=== PATIENT | female | born 2000 | race Caucasian/White ===

== ENCOUNTER → 2020-10-07 12:14 | Outpatient (BNVA) | payer MEDICAID, SELFPAY | PROVIDERS: Family Provider Nurse Practitioner; PCP Nurse Practitioner; Visit Provider Nurse Practitioner Family | DX: Z01.419 Encounter for gynecological examination (general) (routine) without abnormal findings (principal) | CPT/HCPCS: 87491; 87591; 87661; 88175 ==

== ENCOUNTER → 2022-08-16 15:29 | Outpatient (BNVA) | payer MEDICAID, SELFPAY | PROVIDERS: PCP Nurse Practitioner; Visit Provider Nurse Practitioner Family | DX: Z30.09 Encounter for other general counseling and advice on contraception (principal); Z30.41 Encounter for surveillance of contraceptive pills; N63.10 Unspecified lump in the right breast, unspecified quadrant; N63.20 Unspecified lump in the left breast, unspecified quadrant; Z00.00 Encounter for general adult medical examination without abnormal findings | CPT/HCPCS: 81025 ==

== ENCOUNTER 2022-09-09 11:02 | Outpatient (CLI) | payer MEDICAID, SELFPAY ==
--- NOTE | 2022-09-09 11:09 | US_ITS ---
WS: [id number] Ultrasound of palpable subcutaneous nodule inferior the right breast, 09/09/2022 Clinical Data: LUMP UNDER RIGHT BREAST Comparison: None. Findings: There is a well-defined soft tissue nodule measuring 0.72 x 1.76 x 2.43 cm with mixed echotexture. It is longer than it is deep. There is a well-defined smooth borders. No significant blood flow is occu rring. US/US soft tissue head neck [id number] Impression: Nonspecific subcutaneous tissue nodule with greatest dimension of 2.43 cm infer ior to the right breast.
== END 2022-09-09 11:03 | disposition home or self-care (01) ==
LOC: RAD 11:06
PROVIDERS: PCP Nurse Practitioner; Visit Provider Nurse Practitioner Family
DX: N63.10 Unspecified lump in the right breast, unspecified quadrant (principal)
CPT/HCPCS: 76536

== ENCOUNTER → 2022-12-28 10:27 | Outpatient (BNVA) | payer MEDICAID, SELFPAY | PROVIDERS: PCP Nurse Practitioner Family; Visit Provider Nurse Practitioner Family | DX: Z11.3 Encounter for screening for infections with a predominantly sexual mode of transmission (principal) | CPT/HCPCS: 81025; 86592; 86695; 86696; 86705; 86706; 86709; 86803; 87340; 87491; 87591; 87661; 87806 ==

== ENCOUNTER → 2023-03-31 10:38 | Outpatient (BNVA) | payer MEDICAID, SELFPAY | PROVIDERS: PCP Nurse Practitioner Family; Visit Provider Nurse Practitioner Family | DX: R10.9 Unspecified abdominal pain (principal); Z11.3 Encounter for screening for infections with a predominantly sexual mode of transmission | CPT/HCPCS: 80053; 84443; 85025; 86003; 86008; 87491; 87591; 87661 ==

== ENCOUNTER 2023-08-18 23:27 | Inpatient (IN) | payer MEDICAID, SELFPAY ==
[2023-08-18 23:28] VITALS: BP 120/69; PULSE 138; RESP 22; O2SAT 95; BMI 21.2
--- NOTE | 2023-08-18 23:30 | XRR_ITS ---
PROCEDURE INFORMATION: Exam: XR Chest Exam date and time: 08/18/2023 11:33 PM Age: 23 years old Clinical indication: Other: Drug overdose; Patient HX: EMS arrival for druge overdose. Patient non verbal. Unable to obtain further history. ; Additional info: Od TECHNIQUE: Imaging protocol: Radiologic exam of the chest. Views: 1 view. COMPARISON: No relevant prior studies available. FINDINGS: Lungs: Unremarkable. No consolidation. Pleural spaces: Unremarkable. No pleural effusion. No pneumothorax. Heart/Mediastinum: Unremarkable. No cardiomegaly. Bones/joints: Unremarkable. XR/XR chest 1V portable [id number] IMPRESSION: No acute findings.
--- NOTE | 2023-08-18 23:38 | W.ED.OVERDOS ---
HPI - Overdose General: Chief Complaint: Overdose Stated Complaint: Benadryl overdose Time Seen by Provider: 08/18/23 23:30 Source: EMS and other Limitations: altered mental status History of Present Illness: 23-year-old female here with EMS after an overdose attempt. Patient had taken an unknown amount of Benadryl at an unknown time she states is an attempt to kill herself to EMS. He may states when they arrived she did have a seizure lasted roughly 30 seconds this was 30 minutes ago. Patient is postictal here she will open her eyes but not given any history is lethargic. She is tachycardic as well. Review of Systems General: Reports: ROS unobtainable due to mental status PFS ED PFSH: Medical History (Updated 08/19/23 @ 00:59 by Fely Hand MD) No significant past medical history Surgical History No pertinent past surgical history Social History Smoking and tobacco/nicotine status: current every day tobacco/nicotine user e-cigarettes E-Cigarette Details: vaporizer device E-cig/vape details: 0.3 MG NICOTINE/1 YEAR Second hand smoke exposure: No Alcohol intake: never Substance/Drug Use: never Adopted: No Caregiver/support person: No Lives independently: Yes Household members: family Housing: House Marital status: Single Number of children: 0 Highest education level completed: Associate Degree: Academic Program Current occupational status: student Physical Exam Const: COMMON NORMALS: negative for patient oriented x3 EXAM LIMITATIONS: altered mental status HENMT: COMMON NORMALS: normocephalic and atraumatic HEAD & SCALP: normocephalic and atraumatic Eye: COMMON NORMALS: Equal, round and reactive pupils present and EOMs intact bilaterally PUPIL: Yes Equal, round and reactive pupils present OTHER: Nystagmus noted Neck/C-Spine: COMMON NORMALS: full ROM and supple Chest: COMMONS NORMALS: normal inspection of the chest and normal palpation of entire chest wall Resp: COMMON NORMALS: normal respiratory effort, No retractions, No use of accessory muscles and clear to auscultation bilaterally AUSCULTATION: clear to auscultation bilaterally Cardio: COMMON NORMALS: regular rhythm and No murmurs present (Cardio) RATE: tachycardic RHYTHM: regular rhythm GI: COMMON NORMALS: Normal to inspection, nondistended, normoactive bowel sounds present, Soft to palpation, non-tender and no masses PALPATION: Yes Soft to palpation Extremity: COMMON NORMALS: normal to inspection and full ROM Neuro: COMMON NORMALS: negative for patient oriented x3 Psych: COMMON NORMALS: negative for mental status grossly normal Skin: COMMON NORMALS: no rashes or lesions noted and no wounds GENERAL SKIN EXAM: no rashes or lesions noted Course Vital Signs: Vital signs: Vital Signs Pulse Rate 115 H 08/19/23 00:21 Respiratory Rate 25 H 08/19/23 00:21 Blood Pressure 104/50 08/19/23 00:21 Pulse Oximetry 98 08/19/23 00:21 Oxygen Delivery Me thod Nasal Cannula 08/18/23 23:28 Oxygen Flow Rate 4 08/18/23 23:28 MDM - Overdose Medical Decision Making Patient presents here with an overdose attempt on Benadryl. Patient did have a seizure in route along with a seizure here patient given Keppra and Ativan and IV fluids her heart rate here is improving spoke to hospitalist will admit to the ICU at this time. Medical Records I reviewed the patient's medical records. Lab Data I reviewed the patient's lab results. 08/18/23 23:41 08/18/23 23:41 Radiology Impressions Chest X-Ray 08/18/23 23:30 IMPRESSION: No acute findings. Laboratory Results WBC 14.38 10^3/uL (3.29-11.43) H 08/18/23 23:41 RBC 4.28 10^6/uL (3.85-5.65) 08/18/23 23:41 Hgb 13.00 g/dL (11.27-16.99) 08/18/23 23:41 Hct 42.8 % (36-47) 08/18/23 23:41 MCV 100.0 fl (85-98) H 08/18/23 23:41 MCH 30.4 pg (27-33) 08/18/23 23:41 MCHC 30.4 g/dL (30-55) 08/18/23 23:41 RDW 12.7 % (12.1-15.1) 08/18/23 23:41 Plt Count 264 10^3/cmm (157-399) 08/18/23 23:41 MPV 11.5 fL (7.4-10.4) H 08/18/23 23:41 Neut % (Auto) 51.6 % 08/18/23 23:41 Lymph % (Auto) 40.1 % 08/18/23 23:41 [place] % (Auto) 6.5 % 08/18/23 23:41 Eos % (Auto) 0.0 % 08/18/23 23:41 Baso % (Auto) 1.0 % 08/18/23 23:41 Neut # (Auto) 7.43 10^3/uL (1.8-7.7) 08/18/23 23:41 Lymph # (Auto) 5.8 10^3/uL (0.8-4.8) H 08/18/23 23:41 [place] # (Auto) 0.9 10^3/uL (0.2-0.9) 08/18/23 23:41 Eos # (Auto) 0.0 10^3/uL (0.0-0.8) 08/18/23 23:41 Baso # (Auto) 0.1 10^3/uL (0.0-0.1) 08/18/23 23:41 Nucleated RBC % (auto) 0 % 08/18/23 23:41 Nucleated RBCs # 0.0 /100WBC 08/18/23 23:41 Sodium 144 mmol/L (136-145) 08/18/23 23:41 Potassium 3.6 mmol/L (3.5-5.1) 08/18/23 23:41 Chloride 101 mmol/L (98-107) 08/18/23 23:41 Carbon Dioxide 13 mmol/L (22-29) L 08/18/23 23:41 Anion Gap 33.6 (5-19) H 08/18/23 23:41 BUN 12 mg/dL (6-20) 08/18/23 23:41 Creatinine 1.0 mg/dL (0.5-0.9) H 08/18/23 23:41 GFR Calculation 68.1 mL/min (90-130) L 08/18/23 23:41 Glucose 143 mg/dL (65-115) H 08/18/23 23:41 Calculated Osmolality 300 mOsm/kg (285-295) H 08/18/23 23:41 Calcium 9.6 mg/dL (8.5-10.5) 08/18/23 23:41 Magnesium 2.3 mg/dL (1.7-2.3) 08/18/23 23:41 Total Bilirubin 0.2 mg/dL (0.15-1.2) 08/18/23 23:41 AST 24 U/L (0-32) 08/18/23 23:41 ALT 15 U/L (0-33) 08/18/23 23:41 Alkaline Phosphatase 72 U/L (35-105) 08/18/23 23:41 Total Protein 7.5 g/dL (6.6-8.7) 08/18/23 23:41 Albumin 4.6 g/dL (3.5-5.2) 08/18/23 23:41 Globulin 2.9 g/dL (1.3-4.6) 08/18/23 23:41 Salicylates 1.7 mg/dL (3-10) L 08/18/23 23:41 Urine Opiates Screen Negative ng/mL (Negative) 08/18/23 23:40 Acetaminophen < 5.0 ug/mL (10-30) L 08/18/23 23:41 Ur Barbiturates Screen Negative ng/mL (Negative) 08/18/23 23:40 Ur Phencyclidine Scrn Negative ng/mL (Negative) 08/18/23 23:40 Ur Amphetamines Screen Negative ng/mL (Negative) 08/18/23 23:40 U Benzodiazepines Scrn Negative ng/mL (Negative) 08/18/23 23:40 [place] 0.1 mmol/L (0.6-1.2) L 08/18/23 23:41 Urine Cocaine Screen Negative ng/mL (Negative) 08/18/23 23:40 U Marijuana (THC) Screen Negative ng/mL (Negative) 08/18/23 23:40 Ethyl Alcohol < 10 mg/dL (0-10) 08/18/23 23:41 All radiology interpretation(s) finalized by discharge EKG Data EKG 1: I personally reviewed and interpreted this EKG as follows: EKG interpretation date: 08/18/23 EKG interpretation time: 23:32 Interpretation: sinus tach hr [address] or t wave abnormalities qrs 90 qtc 453 Critical Care Time Critical Care Time: Critical Care Time: Yes Total Critical Care Time: 35 Attestation: The high probability of a clinically significant, sudden or life threatening deterioration of the patient's neuro system(s) required my full and direct attention, intervention and personal management. The critical care time is as shown. This time is in addition to time spent performing any reported procedures but includes the following: [x] Data and vital sign review and interpretation [x] Patient assessment, examination and intervention [x] Documentation [x] Medication orders and management Discharge Plan Discharge Patient Disposition: Admitted As Inpatient Clinical Impression: Drug overdose, Seizure Condition: Stable Prescriptions: No Action ondansetron HCl 4 mg tablet 4 mg PO TID PRN (Reason: nausea and vomiting) Qty: 30 0RF omeprazole 20 mg capsule,delayed release(DR/EC) 20 mg PO BID Qty: 60 1RF norgestimate-ethinyl estradiol [Tri-Sprintec (28)] 0.18/0.215/0.25 mg-35 mcg (28) tablet See Rx Instructions .ROUTE .COMPLEX Qty: 28 0RF Dose Instruction: TAKE 1 TABLET BY MOUTH ONCE DAILY FOR 28 DAYS Rx Instructions: TAKE 1 TABLET BY MOUTH ONCE DAILY FOR 28 DAYS Referrals: Charlotte Jordan FNP [Primary Care Provider] - Coding Level of Care Code ED Public Health Representative for [facility]
[2023-08-18] MEDS: LORazepam 2 mg/mL INJ 1 mL IVP (23:44)
[2023-08-18] MEDS: sodium chloride 0.9% 1,000 ML 999 ML IV (23:46)
[2023-08-18 23:50] VITALS: BP 123/62; PULSE 127; RESP 26; O2SAT 99
[2023-08-19] VITALS (47 sets, daily range): BP systolic 104–145; BP diastolic 50–96; PULSE 71–115; RESP 14–32; TEMP 37–37.2; O2SAT 90–100
[2023-08-19] MEDS: sodium chloride 0.9% 1,000 ML 999 ML IV (00:01)
[2023-08-19 00:26] LABS: Basophils # 0.1 10^3/uL (0.0-0.1); Hematocrit 42.8 % (36-47); Lymphocytes # 5.8 10^3/uL (0.8-4.8); Lymphocytes % 40.1 %; Mean Corpuscular HGB Conc 30.4 g/dL (30-55); Mean Corpuscular Hemoglobin 30.4 pg (27-33); Mean Platelet Volume 11.5 fL (7.4-10.4); Monocytes # 0.9 10^3/uL (0.2-0.9); Monocytes % 6.5 %; Neutrophils # 7.43 10^3/uL (1.8-7.7); Neutrophils % 51.6 %; Nucleated Red Blood Cells % 0 %; Platelet Count 264 10^3/cmm (157-399); Red Blood Count 4.28 10^6/uL (3.85-5.65); Red Cell Distribution Width 12.7 % (12.1-15.1); White Blood Count 14.38 10^3/uL (3.29-11.43)
[2023-08-19 00:35] LABS: Amphetamines Screen Urine Negative (Negative); Barbiturates Screen Urine Negative (Negative); Benzodiazepines Screen Urine Negative (Negative); Cocaine Screen Urine Negative (Negative); Opiate Screen Urine Negative (Negative); PCP Screen Urine Negative (Negative); THC Screen Urine Negative (Negative)
[2023-08-19 00:36] LABS: Acetaminophen < 5.0 ug/mL (10-30); Alanine Aminotransferase 15 U/L (0-33); Albumin Level 4.6 g/dL (3.5-5.2); Alcohol Level < 10 mg/dL (0-10); Alkaline Phosphatase 72 U/L (35-105); Anion Gap 33.6 (5-19); Aspartate Amino Transferase 24 U/L (0-32); Blood Urea Nitrogen 12 mg/dL (6-20); Calcium 9.6 mg/dL (8.5-10.5); Carbon Dioxide 13 mmol/L (22-29); Chloride 101 mmol/L (98-107); Globulin 2.9 g/dL (1.3-4.6); Glomerular Filtration Rate 68.1 mL/min (90-130); Glucose 143 mg/dL (65-115); Magnesium 2.3 mg/dL (1.7-2.3); Osmolality Calculated 300 mOsm/kg (285-295); Potassium 3.6 mmol/L (3.5-5.1); Salicylate 1.7 mg/dL (3-10); Sodium 144 mmol/L (136-145); Total Bilirubin 0.2 mg/dL (0.15-1.2); Total Protein 7.5 g/dL (6.6-8.7)
[2023-08-19 00:49] LABS: Lithium 0.1 mmol/L (0.6-1.2)
[2023-08-19 00:54] LABS: Slide Review Slide Review Perform
--- NOTE | 2023-08-19 01:07 | PC.NURSE ---
96 Hour Involuntary Hold Patient Rights have been read to patient and a copy of the same has been given to her. Paper Folding Machine Operator Romaine was present at time of presentation of Rights.
[2023-08-19 02:22] LABS: HCG Qualitative Urine. Negative (Negative)
[2023-08-19] MEDS: ondansetron 2 mg/ML SDV 2 mL 4 MG IVP ×2 (05:04→11:41)
[2023-08-19 06:12] LABS: Lithium 1.1 mmol/L (0.6-1.2)
--- NOTE | 2023-08-19 06:28 | P.HP_ITS ---
Providers/Chief Complaint Admitting Physician: Esteban Rosa MD Primary Care Provider: KRISTIN Gunderson Chief Complaint: Benadryl overdose History of Present Illness Chika Erickson is a 23 year old female who was admitted to the ICU for Benadryl overdose, seizure, postictal state. Patient not able to provide history, she is still postictal, however she is moving her extremities, responding to verbal command. Requiring 2 L of oxygen. Clinically looks euvolemic. No acute distress. Poison control recommended monitoring in ICU. We are not sure about the dosage of Benadryl. Patient did tell EMS about her suicidal attempt. Once cleared will need neuropsych evaluation currently on 96-hour hold. Poison control recommended lithium level check which is within limits. She was given Keppra in the ER as well along with Ativan which is causing more drowsiness Review of Systems General: Reports: ROS unobtainable due to medical condition Medications/Allergies Home Medications Medication Instructions Recorded Confirmed Last Taken Type norgestimate-ethinyl estradiol 1 tab PO DAILY 08/19/23 08/19/23 Unknown History 0.18 mg/0.215mg/0.25mg-35 mcg(28)tablet (Tri-Sprintec (28)) Allergies Allergy/AdvReac Type Severity Reaction Status Date / Time montelukast [From Singulair] Allergy hives Verified 08/18/23 23:38 PFSH Acute PFSH: Medical History (Updated 08/19/23 @ 08:04 by Esteban Rosa MD) No significant past medical history Surgical History No pertinent past surgical history Social History Smoking and tobacco/nicotine status: current every day tobacco/nicotine user e- cigarettes E-Cigarette Details: vaporizer device E-cig/vape details: 0.3 MG NICOTINE/1 YEAR Second hand smoke exposure: No Alcohol intake: never Substance/Drug Use: never Adopted: No Caregiver/support person: No Lives independently: Yes Household members: family Housing: House Marital status: Single Number of children: 0 Highest education level completed: Associate Degree: Academic Program Current occupational status: student Vitals/I&O/Wt Last Vital Signs Pulse 92 08/19/23 06:00 Resp 14 08/19/23 01:08 BP 129/65 08/19/23 01:08 Pulse Ox 100 08/19/23 01:08 O2 Del Method Nasal Cannula 08/19/23 01:44 O2 Flow Rate 4 08/18/23 23:28 08/18/23 08/18/23 08/19/23 14:59 22:59 06:59 Output Total 2200 / 2200 Balance -2200 / -2200 Weight last 48 hrs Weight 63.957 kg Weight 64.41 kg Weight 63.503 kg Physical Exam Narrative: young female No active distress Not examined seizure Confused Able to move extremities Currently on 2 L Hemodynamically stable Euvolemic [place] catheter in place Abdomen soft S1, S2 Urinary Catheter Management: [place]: Cath Placed During This Visit: yes Reason for Continuing Indwelling Catheter: Accurate Measurement of Urinary Ou tput in Critically Ill Patients Urinary Catheter Date of Insertion: 08/18/23 Urinary Catheter Time of Insertion: 23:47 Data 08/18/23 23:41 08/18/23 23:41 A&P Assessment and plan (1) Drug overdose: (2) Seizure: (3) GERD (gastroesophageal reflux disease): (4) Suicide attempt: Plan Suicide attempt by taking Benadryl, doses unknown Poison control contacted recommended conservative management [place] level within limits Will need home medication reconciliation as well DVT prophylaxis on board I would not continue antiepileptics at this point Patient received Keppra and Ativan which made her very drowsy She is able to maintain her airway requiring 2 L of oxygen We will let her eat once more awake and alert Continue IV fluid We will need psych evaluation 96-hour hold DVT prophylaxis on board Full code Not sure if she has previous history of seizure, will request CT head which was not done in the ER Attestations 2 Medical Necessity Statement*: More than 2 midnights anticipated Diagnoses Drug overdose T50.901A Seizure R56.9 GERD (gastroesophageal reflux disease) K21.9 Suicide attempt T14.91XA
[2023-08-19] MEDS: sodium chloride 0.9% 1,000 ML 75 ML IV ×2 (06:43→21:21)
[2023-08-19] MEDS: enoxaparin 40 mg/0.4 mL Syringe SUBCUT (06:43)
[2023-08-19 07:22] LABS: Prolactin 21.38 ng/mL (4.8-23.3)
--- NOTE | 2023-08-19 08:03 | CTR_ITS ---
PROCEDURE INFORMATION: Exam: CT Head Without Contrast Exam date and time: 08/19/2023 6:19 PM Age: 23 years old Clinical indication: Patient HX: Seizure activity. Drug overdose. TECHNIQUE: Imaging protocol: Computed tomography of the head without contrast. Radiation optimization: All CT scans at this facility use at least one of these dose optimization techniques: automated exposure control; mA and/or kV adjustment per patient size (includes targeted exams where dose is matched to clinical indication); or iterative reconstruction. REPORTING DATA: Count of CT and Cardiac NM exams in prior 12 months: This patient has received 0 known CTs and 0 known cardiac nuclear medicine studies in the 12 months prior to the current study. COMPARISON: US soft tissue head neck [id number] 09/09/2022 11:45 AM RADIATION DOSE METRICS: Total DLP (mGy-cm): 1115.18 FINDINGS: Brain: Normal. No hemorrhage. Unremarkable white matter. No mass effect. Cerebral ventricles: No ventriculomegaly. Paranasal sinuses: Visualized sinuses are unremarkable. No fluid levels. Mastoid air cells: Visualized mastoid air cells are well aerated. Bones/joints: Unremarkable. No acute fracture. Soft tissues: Unremarkable. CT/CT head wo con* [id number] IMPRESSION: No acute intracranial abnormality.
--- NOTE | 2023-08-19 08:37 | ECG_ITS ---
[facility] Test Date: 2023-08-19 Pat Name: Chika Erickson Department: Room: ICU02 Gender: Female Deputy Sheriff Generalist/Bailiff: : 2000 Requested By: Tevin Moncada Order Number: [id number] Enzo MD: Constantin Ford M.D. Measurements Intervals [place] Rate: 91 P: 28 W[place]: 129 QRS: 80 QRSD: 76 T: -45 QT: 379 QTc: 467 Interpretive Statements SINUS RHYTHM ST DEVIATION AND MODERATE T-WAVE ABNORMALITY, CONSIDER ANTEROLATERAL ISCHEMIA [-0.1+ mV T-WAVE IN V3-V6] ST DEVIATION AND MODERATE T-WAVE ABNORMALITY, CONSIDER INFERIOR ISCHEMIA [-0.1+ mV T-WAVE IN II/aVF] No previous ECG available for comparison Abnormal EKG Electronically Signed On 08-19-2023 13:52:51 FLIGHT MECHANIC by Constantin Ford M.D. [email or web address]
[2023-08-19 09:19] LABS: Basophils % 0.2 %; Hematocrit 37.2 % (36-47); Lymphocytes # 1.2 10^3/uL (0.8-4.8); Lymphocytes % 8.8 %; Mean Corpuscular HGB Conc 32.5 g/dL (30-55); Mean Corpuscular Volume 92.1 fl (85-98); Monocytes # 0.5 10^3/uL (0.2-0.9); Monocytes % 3.2 %; Neutrophils % 87.6 %; Nucleated Red Blood Cells % 0 %; Platelet Count 204 10^3/cmm (157-399); Red Blood Count 4.04 10^6/uL (3.85-5.65); Red Cell Distribution Width 12.8 % (12.1-15.1); White Blood Count 13.94 10^3/uL (3.29-11.43)
[2023-08-19 09:36] LABS: Troponin T (5th) Once < 6 ng/L (0-10)
[2023-08-19 09:38] LABS: Ammonia 28 umol/L (11-51); Lactic Sepsis W/Reflex 1.5 mmol/L (0.5-2.2)
[2023-08-19 09:53] LABS: Alanine Aminotransferase 13 U/L (0-33); Albumin Level 4.5 g/dL (3.5-5.2); Alkaline Phosphatase 69 U/L (35-105); Blood Urea Nitrogen 8 mg/dL (6-20); Calcium 8.7 mg/dL (8.5-10.5); Carbon Dioxide 22 mmol/L (22-29); Chloride 102 mmol/L (98-107); Globulin 2.4 g/dL (1.3-4.6); Glomerular Filtration Rate 102.8 mL/min (90-130); Glucose 130 mg/dL (65-115); Osmolality Calculated 284 mOsm/kg (285-295); Sodium 137 mmol/L (136-145); Total Bilirubin 0.4 mg/dL (0.15-1.2); Total Protein 6.9 g/dL (6.6-8.7)
[2023-08-19 10:03] LABS: Lithium < 0.1 mmol/L (0.6-1.2)
[2023-08-19 10:04] LABS: Anion Gap 17.2 (5-19); Aspartate Amino Transferase 20 U/L (0-32); Creatine Phosphokinase 98 U/L (26-192); Potassium 4.2 mmol/L (3.5-5.1)
[2023-08-19 10:15] LABS: Hepatitis A Antibody IgM Non-Reactive (Nonreactive); Hepatitis B Core IgM Non-Reactive (Nonreactive); Hepatitis B Surface Antigen Non-Reactive (Nonreactive); Hepatitis C Virus Antibody Non-Reactive (Nonreactive)
[2023-08-19] MEDS: LORazepam 2 mg/mL INJ 1 mL 1 MG IVP (11:15)
[2023-08-19] MEDS: scopolamine 1.5 Patch 1 PATCH TRANSDERMA (13:23)
--- NOTE | 2023-08-19 13:38 | P.PN_ITS ---
Subjective Subjective: Patient was seen this morning, she is alert to person, not to place, not to time, she remains encephalopathic, she is sitting up in bed, with nursing staff around her, she can follow some commands, but is quite drowsy, easily agitated, Vitals/I&O/Wt Last Vital Signs Pulse 90 08/19/23 13:23 Resp 16 08/19/23 07:56 BP 128/80 08/19/23 13:23 Pulse Ox 95 08/19/23 07:56 O2 Del Method Nasal Cannula 08/19/23 07:56 O2 Flow Rate 2 08/19/23 07:56 08/18/23 08/19/23 08/19/23 22:59 06:59 14:59 Intake Total 2109 / 2109 Output Total 2199 / 2199 Balance -90 / -90 Weight last 48 hrs Weight 63.957 kg Weight 64.41 kg Weight 63.503 kg Physical Exam Const: COMMON NORMALS: no acute distress EXAM LIMITATIONS: altered mental status ORIENTATION/CONSCIOUSNESS: Yes awake and Yes oriented to person; not oriented to place and not oriented to time Resp: COMMON NORMALS: normal respiratory effort, No retractions, No use of accessory muscles and clear to auscultation bilaterally AUSCULTATION: clear to auscultation bilaterally Cardio: COMMON NORMALS: regular rate, regular rhythm, S1 normal heart sound present and S2 normal heart sound present RATE: regular rate RHYTHM: regular rhythm HEART SOUNDS: S1 normal heart sound present and S2 normal heart sound present GI: COMMON NORMALS: Normal to inspection, nondistended, normoactive bowel sounds present and non-tender Extremity: COMMON NORMALS: no pedal edema Neuro: SENSORIUM/ORIENTATION: Yes oriented to person, No oriented to place and No oriented to time Psych: COMMON NORMALS: mental status grossly normal Urinary Catheter Management: [place]: Cath Placed During This Visit: yes Reason for Continuing Indwelling Catheter: Accurate Measurement of Urinary Output in Critically Ill Patients Urinary Catheter Date of Insertion: 08/18/23 Urinary Catheter Time of Insertion: 23:47 Data 08/19/23 09:04 08/19/23 09:04 A&P Assessment and plan (1) Drug overdose: (2) Seizure: (3) GERD (gastroesophageal reflux disease): (4) Suicide attempt: Plan Suicide attempt by taking Benadryl, doses unknown Poison control contacted recommended conservative management [place] level within limits Will need home medication reconciliation as well DVT prophylaxis on board I would not continue antiepileptics at this point, continue to monitor Patient received Keppra and Ativan which made her very drowsy She is able to maintain her airway requiring 2 L of oxygen We will let her eat once more awake and alert ? Troponin is 6, EKG does show nonspecific ST deviations, depressions, and anterior leads, will monitor, telemetry monitoring Continue IV fluid We will need psych evaluation 96-hour hold DVT prophylaxis on board Full code Not sure if she has previous history of seizure, will request CT head which was not done in the ER Attestations Medical Necessity Statement*: Patient requires hospitalization for suicide attempt, Benadryl overdose Diagnoses Drug overdose T50.901A Seizure R56.9 GERD (gastroesophageal reflux disease) K21.9 Suicide attempt T14.91XA
--- NOTE | 2023-08-19 19:15 | PC.NURSE ---
Patient becoming aggitated at change of shift, getting OOB very unsteady on feet. Demanding we give her purse, wanting her vape pen. Asked patient if she would need a nicotine patch, she yes. Spoke with regarding patient aggitation and requesting nicotine patch. ordered PRN Xanax. Patient is NPO due to mentation but can if now that she is waking up can see if patient tolerates PO and can advance diet if appropriate.
[2023-08-19] MEDS: nicotine 21 mg Patch 1 PATCH TRANSDERMA (21:21)
[2023-08-19] MEDS: lanolin oint 7 gm 1 APPLIC TOPICAL (21:56)
[2023-08-20] VITALS (15 sets, daily range): BP systolic 114–119; BP diastolic 55–75; PULSE 66–99; RESP 14–22; TEMP 36.5–37.1; O2SAT 95–100; BMI 19.8
[2023-08-20 04:10] LABS: Basophils # 0.1 10^3/uL (0.0-0.1); Basophils % 0.6 %; Hematocrit 36.8 % (36-47); Lymphocytes # 3.1 10^3/uL (0.8-4.8); Lymphocytes % 28.5 %; Mean Corpuscular HGB Conc 31.8 g/dL (30-55); Mean Corpuscular Hemoglobin 29.6 pg (27-33); Mean Corpuscular Volume 93.2 fl (85-98); Mean Platelet Volume 11.5 fL (7.4-10.4); Monocytes # 0.7 10^3/uL (0.2-0.9); Monocytes % 6.7 %; Neutrophils % 63.9 %; Nucleated Red Blood Cells % 0 %; Platelet Count 191 10^3/cmm (157-399); Red Blood Count 3.95 10^6/uL (3.85-5.65); White Blood Count 10.95 10^3/uL (3.29-11.43)
[2023-08-20 04:25] LABS: Alanine Aminotransferase 11 U/L (0-33); Albumin Level 3.9 g/dL (3.5-5.2); Alkaline Phosphatase 60 U/L (35-105); Anion Gap 13.5 (5-19); Aspartate Amino Transferase 15 U/L (0-32); Blood Urea Nitrogen 8 mg/dL (6-20); Calcium 8.7 mg/dL (8.5-10.5); Carbon Dioxide 24 mmol/L (22-29); Chloride 108 mmol/L (98-107); Globulin 2.4 g/dL (1.3-4.6); Glomerular Filtration Rate 88.1 mL/min (90-130); Glucose 74 mg/dL (65-115); Osmolality Calculated 291 mOsm/kg (285-295); Potassium 3.5 mmol/L (3.5-5.1); Sodium 142 mmol/L (136-145); Total Bilirubin 0.5 mg/dL (0.15-1.2); Total Protein 6.3 g/dL (6.6-8.7)
[2023-08-20 04:29] LABS: Creatine Phosphokinase 110 U/L (26-192)
[2023-08-20 04:31] LABS: Procalcitonin 0.04 ng/mL (0-0.5)
[2023-08-20 04:34] LABS: Magnesium 2.2 mg/dL (1.7-2.3)
[2023-08-20] MEDS: enoxaparin 40 mg/0.4 mL Syringe SUBCUT (05:58)
[2023-08-20] MEDS: nicotine 21 mg Patch 1 PATCH TRANSDERMA (08:30)
[2023-08-20] MEDS: sennosides-docusate Tablet 1 TAB PO (08:30)
--- NOTE | 2023-08-20 08:59 | PC.NURSE ---
Report called to NPU, patient transferred via wheelchair accompanied by this nurse and security. Patient belongings given to NPU staff on transport. Mom called and updated on plan of care/ transfer of care.
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
[2023-08-20 11:04] LABS: Bilirubin Urine Neg (Negative); Blood Urine 3+ (Negative); Glucose Urine UA Norm (Normal); Ketones Urine 1+ (Negative); Nitrate Urine Positive (Negative); Protein Urine Trace (Negative); Urine Appearance Cloudy (CLEAR); Urine Color Yellow (Yellow); Urobilinogen Urine Neg (Negative); pH Urine 5 (5-7)
[2023-08-20 11:05] LABS: Add Urine Culture? Yes; Add Urine Microscopic? YES; Bacteria Urine 4+ /hpf; Leukocyte Esterase Urine 2+ (Negative); RBC Urine 0-4 /hpf (0-2); WBC Urine TOO NUMEROUS TO CNT /hpf (0-5)
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
[2023-08-20] MEDS: flu vacc pf 2023-24 (6 mos+) 60 MCG IM (14:03)
--- NOTE | 2023-08-20 14:05 | P.PN_ITS ---
Subjective Subjective: Patient was seen this morning, she is sitting up in bed, enjoying breakfast, she is alert oriented x4, follows all commands, she reports that she tried to kill herself by taking Benadryl tablets, denies any other drug use, denies any alcohol use, denies any prior history of suicide attempts, denies active suicidal ideation, denies active homicidal ideation, does report feeling down and depressed, Vitals/I&O/Wt Last Vital Signs Temp 98.8 F 08/20/23 09:50 Pulse 91 08/20/23 09:50 Resp 19 H 08/20/23 09:50 BP 119/75 08/20/23 09:50 Pulse Ox 97 08/20/23 09:50 O2 Del Method Room Air 08/20/23 10:05 O2 Flow Rate 1.5 08/20/23 07:34 08/19/23 08/20/23 08/20/23 22:59 06:59 14:59 Intake Total 1030 / 1030 240 / 1270 1111.25 / 1111.25 Output Total 1999 350 / 2350 100 / 100 Balance -970 / -970 -110 / -1080 1011.25 / 1011.25 Weight last 48 hrs Weight 58.967 kg Weight 59.194 kg Weight 63.957 kg Weight 59.148 kg Weight 64.41 kg Weight 63.503 kg Physical Exam Const: COMMON NORMALS: no acute distress and patient oriented x3 Resp: COMMON NORMALS: normal respiratory effort, No retractions, No use of accessory muscles and clear to auscultation bilaterally AUSCULTATION: clear to auscultation bilaterally Cardio: COMMON NORMALS: regular rate, regular rhythm, S1 normal heart sound present and S2 normal heart sound present RATE: regular rate RHYTHM: regular rhythm HEART SOUNDS: S1 normal heart sound present and S2 normal heart sound present GI: COMMON NORMALS: Normal to inspection, nondistended, normoactive bowel sounds present and non-tender Extremity: COMMON NORMALS: no pedal edema Neuro: COMMON NORMALS: patient oriented x3 Psych: COMMON NORMALS: mental status grossly normal Urinary Catheter Management: Newby: Cath Placed During This Visit: yes, but has since been removed by the nurse Reason for Continuing Indwelling Catheter: Decision to DC Catheter Urinary Catheter Date of Insertion: 08/18/23 Urinary Catheter Time of Insertion: 23:47 Date Urinary Catheter Removed: 08/20/23 Time Urinary Catheter Discontinued: 08:59 Data 08/20/23 03:01 08/20/23 03:01 A&P Assessment and plan (1) Suicide attempt: (2) Drug overdose: (3) Major depressive disorder, single episode: Plan Suicide attempt by taking Benadryl Poison control contacted recommended conservative management [place] level within limits Will need home medication reconciliation as well Reported seizures, by EMS I would not continue antiepileptics at this point, continue to monitor, she will need to follow-up with neurology as outpatient, no driving for at least 6 months Currently alert oriented x4, following all commands, We will need psych evaluation 96-hour hold DVT prophylaxis on board Full code Will move to neuropsych, accepted, On discharge patient needs to follow-up with neurology, new onset seizure, cannot drive for the next 6 months or until she sees neurology, follow-up [facility] [place] Attestations Medical Necessity Statement*: Patient requires hospitalization for suicide attempt, suicidal ideation, moving to neuropsychiatric unit Diagnoses Suicide attempt T14.91XA Drug overdose T50.901A Major depressive disorder, single episode F32.9
[2023-08-20] MEDS: cefdinir 300 MG CAPSULE PO (20:09)
[2023-08-21 06:00] VITALS: BP 103/66; PULSE 77; RESP 17; TEMP 36.8; O2SAT 99
[2023-08-21] MEDS: sennosides-docusate Tablet 1 TAB PO (08:50)
[2023-08-21] MEDS: cefdinir 300 MG CAPSULE PO ×2 (08:50→20:14)
[2023-08-21] MEDS: nicotine 21 mg Patch 1 PATCH TRANSDERMA (08:50)
[2023-08-21] MEDS: sertraline 50 mg Tablet 25 MG PO (08:50)
[2023-08-21 09:24] LABS: Alanine Aminotransferase 13 U/L (0-33); Alkaline Phosphatase 73 U/L (35-105); Anion Gap 10.7 (5-19); Aspartate Amino Transferase 14 U/L (0-32); Blood Urea Nitrogen 10 mg/dL (6-20); C Reactive Protein 8.4 mg/L (0.0-4.9); Calcium 9.1 mg/dL (8.5-10.5); Carbon Dioxide 29 mmol/L (22-29); Chloride 104 mmol/L (98-107); Creatinine Clr Calc Pharmacy 120.8844; Globulin 2.5 g/dL (1.3-4.6); Glomerular Filtration Rate 102.8 mL/min (90-130); Glucose 97 mg/dL (65-115); Osmolality Calculated 289 mOsm/kg (285-295); Potassium 3.7 mmol/L (3.5-5.1); Sodium 140 mmol/L (136-145); Total Bilirubin 0.3 mg/dL (0.15-1.2); Total Protein 6.5 g/dL (6.6-8.7)
[2023-08-21 09:25] LABS: Creatine Phosphokinase 69 U/L (26-192)
[2023-08-21 09:32] LABS: Procalcitonin 0.05 ng/mL (0-0.5)
--- NOTE | 2023-08-21 13:44 | W.PM.NPUPNS ---
Subjective NPU Subjective: 23-year-old white female with a history of anxiety and depression admitted with an overdose on Benadryl leading to a seizure in ICU placement prior to admission on the n.p.o. Patient had minimized any suicidal thoughts at this time. She had endorsed some depression. She had stated that she had a visit with her mother and stated that it went well. She had reported that she had not been talking with her father. She had endorsed feeling comfortable with living in her [facility] but stated that she would like to live on her own eventually. Staff notes the patient remained isolative on the milieu. She denied any auditory or visual hallucinations. She had reported no side effects from the Zoloft that was initiated yesterday. Mental Status Exam MSE Comments: She is a casually dressed white female with fair hygiene and a steady gait. There was no evidence of any abnormal involuntary motor movements tics or tremors appreciated. She appeared in mild distress. Her speech was normal in regards to rate rhythm and prosody. Her thought process was linear logical and goal-directed. Her thought content showed no evidence of homicidal ideation. She minimized any suicidal ideation at this time. Her mood was described as better. Her affect remained tearful and sad. She had continued to perseverate about wanting to go home. Her insight is impaired. Her judgment is poor. Her impulse control appeared limited. Her recent and remote memory were grossly intact. Vitals/I&O/Wt Last Vital Signs Temp 98.2 F 08/21/23 06:00 Pulse 77 08/21/23 06:00 Resp 17 08/21/23 06:00 BP 103/66 08/21/23 06:00 Pulse Ox 99 08/21/23 06:00 O2 Del Method Room Air 08/21/23 06:00 O2 Flow Rate 1.5 08/20/23 07:34 08/20/23 08/21/23 08/21/23 22:59 06:59 14:59 Intake Total 128.75 / 1240.00 Output Total 100 / 200 Balance 28.75 / 1040.00 Weight last 48 hrs Weight 58.627 kg Weight 58.967 kg Weight 59.194 kg Physical Exam Urinary Catheter Management: Newby: Cath Placed During This Visit: yes, but has since been removed by the nurse Reason for Continuing Indwelling Catheter: Decision to DC Catheter Urinary Catheter Date of Insertion: 08/18/23 Urinary Catheter Time of Insertion: 23:47 Date Urinary Catheter Removed: 08/20/23 Time Urinary Catheter Discontinued: 08:59 Data NPU 08/20/23 03:01 08/21/23 08:47 Micro: Microbiology 08/20/23 09:59 Urine Culture - Preliminary Urine,Clean Catch Gram Negative Rods Microbiology 08/20/23 09:59 Urine,Clean Catch Urine Culture - Preliminary Gram Negative Rods A&P Assessment and plan (1) Suicide attempt: (2) Anxiety disorder, unspecified: (3) Major depressive disorder, single episode: (4) Drug overdose: (5) New onset seizure: Plan 23-year-old female admitted with a significant overdose on Benadryl with suicidal intent leading to a seizure and placement in ICU. Patient was willing to discuss treatment for her depression which has been prominent over the last month. She will remain here involuntarily at this time. 1. Encourage individual, group and milieu therapy. 2. Recommend sober living treatment at the highest level of care to which the patient is willing to commit. 3. Continue q-15 minute checks for safety.? 4.? Increase zoloft to 50mg daily. 5.? Will attempt to gather collateral information. Involuntary Hold Information 96 Hour Hold: 96 Hour Involuntary Admission: Yes 96 Hour Hold Ending Date: 08/25/23 96 Hour Hold Ending Time: 23:37 Attestations NPU Medical Necessity Statement*: Inpatient hospitalization is medically necessary and deemed to be the clinically appropriate intervention at this time. We will monitor/ initiate medications while making changes as indicated. The patient's likely length of stay is 5 to 7 days. Coding Level of Care Code Acute Code for [facility] Fwd Diagnoses Suicide attempt T14.91XA Anxiety disorder, unspecified F41.9 Major depressive disorder, single episode F32.9 Drug overdose T50.901A New onset seizure R56.9
[2023-08-21 14:00] VITALS: BP 117/76; PULSE 85; RESP 16; TEMP 36.5; O2SAT 100
[2023-08-21 22:00] VITALS: BP 129/92; PULSE 106; RESP 18; TEMP 36.9; O2SAT 96
[2023-08-22 06:00] VITALS: BP 111/70; PULSE 71; RESP 16; O2SAT 96
[2023-08-22 07:03] LABS: Alanine Aminotransferase 10 U/L (0-33); Albumin Level 3.8 g/dL (3.5-5.2); Alkaline Phosphatase 61 U/L (35-105); Anion Gap 13.9 (5-19); Aspartate Amino Transferase 13 U/L (0-32); Blood Urea Nitrogen 9 mg/dL (6-20); C Reactive Protein 4.4 mg/L (0.0-4.9); Calcium 8.9 mg/dL (8.5-10.5); Carbon Dioxide 28 mmol/L (22-29); Chloride 103 mmol/L (98-107); Creatinine Clr Calc Pharmacy 120.8844; Globulin 2.5 g/dL (1.3-4.6); Glomerular Filtration Rate 102.8 mL/min (90-130); Glucose 97 mg/dL (65-115); Osmolality Calculated 291 mOsm/kg (285-295); Potassium 3.9 mmol/L (3.5-5.1); Sodium 141 mmol/L (136-145); Total Bilirubin 0.2 mg/dL (0.15-1.2); Total Protein 6.3 g/dL (6.6-8.7)
[2023-08-22 07:07] LABS: Creatine Phosphokinase 52 U/L (26-192)
[2023-08-22 07:14] LABS: Procalcitonin 0.05 ng/mL (0-0.5)
[2023-08-22] MEDS: cefdinir 300 MG CAPSULE PO ×2 (07:37→20:33)
[2023-08-22] MEDS: sennosides-docusate Tablet 1 TAB PO (07:38)
[2023-08-22] MEDS: nicotine 21 mg Patch 1 PATCH TRANSDERMA (07:38)
[2023-08-22] MEDS: sertraline 50 mg Tablet 25 MG PO (07:38)
[2023-08-22] MEDS: blistex lip oint 7 gm Tube 1 APPLIC TOPICAL (07:43)
--- NOTE | 2023-08-22 08:29 | PC.NURSE ---
ASSESSMENT COMPLETED IN ROOM. PT STATES SHE SLEPT WELL LAST NIGHT. DENIES DEPRESSION AND ANXIETY RATING BOTH 0/10. PT REPORTS PAIN 1/10 IN HER OLD IV SITES TO BILATERAL AC'S. DENIES SI/HI AND AVH AT THIS TIME. REPORTS LAST BM ON 08/22/23. PT IS WITHDRAWN AND ISOLATES TO ROOM. FLAT AFFECT NOTED. PT REQUESTS INFORMATION ON ZOLOFT, WHICH SHE IS TAKING. THIS RN PRINTED OUT CARE NOTES ON THE MEDICATION AND COMPLETED TEACHING ON IT. PT SIGNED CARE NOTE STATING SHE UNDERSTOOD. ALL QUESTIONS ANSWERED AND SUPPORT VOICED.
[2023-08-22 11:22] VITALS: PULSE 101; RESP 18; O2SAT 99
[2023-08-22 14:00] VITALS: BP 115/73; PULSE 74; RESP 16; TEMP 36.8; O2SAT 97
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
[2023-08-22 19:10] VITALS: PULSE 96; RESP 18; O2SAT 97
[2023-08-22] MEDS: acetaminophen 325 mg Tablet 650 MG PO (20:32)
[2023-08-22] MEDS: trazodone 50 mg Tablet PO (20:33)
[2023-08-22 20:35] VITALS: BP 111/76; PULSE 85; RESP 16; TEMP 36.7; O2SAT 98
[2023-08-22] MEDS: hyDROXYzine 25 mg Capsule 50 MG PO (22:33)
[2023-08-23] MEDS: fluoxetine 10 mg Capsule PO (08:23)
[2023-08-23] MEDS: nicotine 21 mg Patch 1 PATCH TRANSDERMA (08:23)
[2023-08-23] MEDS: sennosides-docusate Tablet 1 TAB PO (08:23)
[2023-08-23] MEDS: cefdinir 300 MG CAPSULE PO ×2 (10:06→20:12)
[2023-08-23] MEDS: naproxen 500 mg Tablet PO (10:10)
[2023-08-23 14:00] VITALS: BP 104/61; PULSE 85; RESP 18; TEMP 36.8; O2SAT 98
--- NOTE | 2023-08-23 19:55 | P.NPUPN_ITS ---
Subjective NPU 2 Subjective: 23-year-old white female with a history of anxiety and depression admitted with an overdose on Benadryl leading to a seizure in ICU placement prior to admission onto the neuropsychiatric unit. Patient did not complain of diarrhea today with the initiation of Prozac. She had reported that she felt comfortable with returning to live on the property of her parents but not in the same house. She had expressed having significant problems with stress. Patient was accompanied by her mother and the mother had reported the patient had had a long history of a learning disorder including dyslexia and mother reported that the patient was often shy and had difficulties with managing her own care without some help. Patient had stated that she frequently felt that she may make a mistake due to her dyslexia. She had reported struggling with chronic anxiety. She had requested to be tested for sexually transmitted diseases as she stated that she would feel more comfortable knowing the results. Mental Status Exam 2 MSE Comments: She is a casually dressed white female with fair hygiene and a steady gait. There was no evidence of any abnormal involuntary motor movements tics or tremors appreciated. She appeared in mild to moderate distress. Her speech was normal in regards to rate rhythm and prosody. Her thought process was linear logical and goal-directed. Her thought content showed no evidence of homicidal ideation. She minimized any suicidal ideation at this time. Her mood was described as okay. Her affect remained mood incongruent and anxious. Her insight is impaired. Her judgment is poor. Her impulse control appeared limited. Her recent and remote memory were grossly intact. Vitals/I&O/Wt Last Vital Signs Temp 98.2 F 08/23/23 14:00 Pulse 85 08/23/23 14:00 Resp 18 08/23/23 14:00 BP 104/61 08/23/23 14:00 Pulse Ox 98 08/23/23 14:00 O2 Del Method Room Air 08/23/23 14:00 O2 Flow Rate 1.5 08/20/23 07:34 08/23/23 08/23/23 08/23/23 06:59 14:59 22:59 Intake Total 600 / 600 Balance 600 / 600 Physical Exam 2 Urinary Catheter Management: Newby: Cath Placed During This Visit: yes, but has since been removed by the nurse Reason for Continuing Indwelling Catheter: Decision to DC Catheter Urinary Catheter Date of Insertion: 08/18/23 Urinary Catheter Time of Insertion: 23:47 Date Urinary Catheter Removed: 08/20/23 Time Urinary Catheter Discontinued: 08:59 Data NPU 08/20/23 03:01 08/22/23 06:25 A&P Assessment and plan (1) Suicide attempt: (2) Anxiety disorder, unspecified: (3) Major depressive disorder, single episode: (4) Drug overdose: (5) New onset seizure: Plan 23-year-old female admitted with a significant overdose on Benadryl with suicidal intent leading to a seizure and placement in ICU. Patient was willing to discuss treatment for her depression which has been prominent over the last month. She will remain here involuntarily at this time. 1. Encourage individual, group and milieu therapy. R/O PTSD 2. Recommend sober living treatment at the highest level of care to which the patient is willing to commit. 3. Continue q-15 minute checks for safety.? 4.? Increase prozac to 20mg daily. 5.? Will attempt to gather collateral information. Involuntary Hold Information 2 96 Hour Hold: 96 Hour Involuntary Admission: Yes 96 Hour Hold Ending Date: 08/25/23 96 Hour Hold Ending Time: 23:37 Attestations NPU 2 Medical Necessity Statement*: Inpatient hospitalization is medically necessary and deemed to be the clinically appropriate intervention at this time. We will monitor/ initiate medications while making changes as indicated. The patient's likely length of stay is 5 to 7 days. Coding Level of Care Code Acute Code for [facility] Fwd Diagnoses Suicide attempt T14.91XA Anxiety disorder, unspecified F41.9 Major depressive disorder, single episode F32.9 Drug overdose T50.901A New onset seizure R56.9
[2023-08-23] MEDS: loratadine 10 mg Tablet PO (20:12)
[2023-08-23] MEDS: trazodone 50 mg Tablet PO (20:12)
[2023-08-23 20:35] VITALS: BP 124/81; PULSE 75; RESP 18; TEMP 36.7; O2SAT 99
[2023-08-23 23:06] LABS: Hepatitis A Antibody IgM Non-Reactive (Nonreactive); Hepatitis B Core AB, Total Non-Reactive (Nonreactive); Hepatitis B Surface AB 3.5 (11.5-1000); Hepatitis B Surface Antigen Non-Reactive (Nonreactive); Hepatitis C Virus Antibody Non-Reactive (Nonreactive)
[2023-08-24 06:00] VITALS: BP 108/70; PULSE 90; RESP 16; O2SAT 98
[2023-08-24] MEDS: fluoxetine 10 mg Capsule 20 MG PO (08:08)
[2023-08-24] MEDS: sennosides-docusate Tablet 1 TAB PO (08:08)
[2023-08-24] MEDS: cefdinir 300 MG CAPSULE PO ×2 (08:08→20:20)
[2023-08-24] MEDS: nicotine 21 mg Patch 1 PATCH TRANSDERMA (08:08)
[2023-08-24] MEDS: naproxen 500 mg Tablet PO ×2 (08:11→20:20)
[2023-08-24 13:48] VITALS: BP 113/71; PULSE 75; RESP 16; TEMP 36.3; O2SAT 99
--- NOTE | 2023-08-24 16:22 | P.NPUPN_ITS ---
Subjective NPU 2 Subjective: 23-year-old white female with a history of anxiety and depression admitted with an overdose on Benadryl leading to a seizure in ICU placement prior to admission onto the neuropsychiatric unit. The patient reported no side effects from medication. She had no complaints of diarrhea. She stated that she was feeling much better. She stated that she was agreeable to returning to live on her parents property but not in their home. She stated that she would continue to be able to work as her mother had stated that she would drive her there. She had endorsed no thoughts of hurting herself or others today. She continued to appear somewhat isolative on the milieu with limited engagement in therapy or in groups. Mental Status Exam 2 MSE Comments: She is a casually dressed white female with fair hygiene and a steady gait. There was no evidence of any abnormal involuntary motor movements tics or tremors appreciated. She appeared in less distress today. Her speech was normal in regards to rate rhythm and prosody. There was evidence of mild psychomotor retardation. Her thought process was linear logical and goal- directed. Her thought content showed no evidence of homicidal ideation. She minimized any suicidal ideation at this time. Her mood was described as better. Her affect remained mood incongruent and anxious. Her insight is impaired. Her judgment is poor. Her impulse control appeared limited. Her recent and remote memory were grossly intact. Vitals/I&O/Wt Last Vital Signs Temp 97.4 F L 08/24/23 13:48 Pulse 75 08/24/23 13:48 Resp 16 08/24/23 13:48 BP 113/71 08/24/23 13:48 Pulse Ox 99 08/24/23 13:48 O2 Del Method Room Air 08/24/23 13:48 O2 Flow Rate 1.5 08/20/23 07:34 Physical Exam 2 Urinary Catheter Management: Newby: Cath Placed During This Visit: yes, but has since been removed by the nurse Reason for Continuing Indwelling Catheter: Decision to DC Catheter Urinary Catheter Date of Insertion: 08/18/23 Urinary Catheter Time of Insertion: 23:47 Date Urinary Catheter Removed: 08/20/23 Time Urinary Catheter Discontinued: 08:59 Data NPU 08/20/23 03:01 08/22/23 06:25 A&P Assessment and plan (1) Suicide attempt: (2) Anxiety disorder, unspecified: (3) Major depressive disorder, single episode: (4) Drug overdose: (5) New onset seizure: Plan 23-year-old female admitted with a significant overdose on Benadryl with suicidal intent leading to a seizure and placement in ICU. Patient was willing to discuss treatment for her depression which has been prominent over the last month. She will remain here involuntarily at this time. 1. Encourage individual, group and milieu therapy. R/O PTSD 2. Recommend sober living treatment at the highest level of care to which the patient is willing to commit. 3. Continue q-15 minute checks for safety.? 4.? Continue prozac to 20mg daily. 5.? Patient likely discharge tommorow. Involuntary Hold Information 2 96 Hour Hold: 96 Hour Involuntary Admission: Yes 96 Hour Hold Ending Date: 08/25/23 96 Hour Hold Ending Time: 23:37 Attestations NPU 2 Medical Necessity Statement*: Inpatient hospitalization is medically necessary and deemed to be the clinically appropriate intervention at this time. We will monitor/ initiate medications while making changes as indicated. The patient's likely length of stay is 1-2 days. Coding Level of Care Code Acute Code for [facility] Fwd Diagnoses Suicide attempt T14.91XA Anxiety disorder, unspecified F41.9 Major depressive disorder, single episode F32.9 Drug overdose T50.901A New onset seizure R56.9
[2023-08-24 20:08] VITALS: BP 129/78; PULSE 96; RESP 16; TEMP 36.8; O2SAT 97
[2023-08-24] MEDS: loratadine 10 mg Tablet PO (20:20)
--- NOTE | 2023-08-24 20:45 | PC.NURSE ---
UP DAY AREA CONVERSING WITH PEERS. PT DENIES SI/HI AND AVH AT THIS TIME. PT REPORTS PAIN 3/10 WHICH THIS RN GAVE NAPROXEN 500 MG ORDERED. RATES DEPRESSION 0/10 DIANA ANXIETY 0/10. PT WAS EDUCATED TO COMPLETE URINE TEST AND URINATE IN CUP SO STD PANEL CAN BE COMPLETED. URINE WAS COLLECTED ORDERED. PT CONTINUES TO BE FLAT AND GUARDED. ALL QUESTIONS ANSWERED AND SUPPORT VOICED.
[2023-08-25 06:00] VITALS: BP 111/66; PULSE 94; RESP 18; O2SAT 98
[2023-08-25] MEDS: cefdinir 300 MG CAPSULE PO (08:14)
[2023-08-25] MEDS: nicotine 21 mg Patch 1 PATCH TRANSDERMA (08:14)
[2023-08-25] MEDS: sennosides-docusate Tablet 1 TAB PO (08:14)
[2023-08-25] MEDS: fluoxetine 10 mg Capsule 20 MG PO (08:14)
[2023-08-25] MEDS: naproxen 500 mg Tablet PO (08:15)
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
[2023-08-25 13:02] VITALS: BP 111/66; PULSE 94; RESP 18; O2SAT 98
[2023-08-26 17:53] LABS: Chlamydia Trachomatis RNA TMA NOT DETECTED (NOT DETECTED); Neisseria Gonorrhoeae RNA, TMA NOT DETECTED (NOT DETECTED)
[2023-09-01 10:32] LABS: HIV 1 & 2 Antibody Non-Reactive (Non-Reactiv); HIV 1 & 2 Antigen Non-Reactive (Non-Reactiv)
== END 2023-08-25 13:28 | disposition home or self-care (01) | DRG 918 ==
LOC: ER 08-19 00:59 → ICU 08-19 01:07 → NP 08-20 09:15
PROVIDERS: Family Medicine; Admitting Provider Internal Medicine; Emergency Provider Emergency Medicine; PCP Nurse Practitioner Family; Visit Provider Psychiatry & Neurology Psychiatry
DX: T45.0X2A Poisoning by antiallergic and antiemetic drugs, intentional self-harm, initial encounter (principal); Z59.01 Sheltered homelessness; Y92.9 Unspecified place or not applicable; R56.9 Unspecified convulsions; K21.9 Gastro-esophageal reflux disease without esophagitis; F32.9 Major depressive disorder, single episode, unspecified; F41.9 Anxiety disorder, unspecified; Z62.810 Personal history of physical and sexual abuse in childhood; Z62.811 Personal history of psychological abuse in childhood; R48.0 Dyslexia and alexia
CPT/HCPCS: 36415; 51702; 70450; 71045; 80053; 80074; 80178; 80306; 80307; 81001; 81025; 82140; 82550; 83605; 83735; 84145; 84146; 84484; 85025; 86140; 86705; 86706; 86709; 86803; 87077; 87086; 87186; 87340; 87491; 87591; 87806; 90471; 90686; 93005; 93010; 96372; 96374; 96375; 96376; 97150; 97165; 99285; J1650; J1953; J2060; J2405; J7030

== ENCOUNTER → 2023-10-27 11:00 | Outpatient (BNVA) | payer MEDICAID, SELFPAY | PROVIDERS: PCP Nurse Practitioner Family; Visit Provider Nurse Practitioner Family | DX: K59.00 Constipation, unspecified (principal); Z12.4 Encounter for screening for malignant neoplasm of cervix; Z01.419 Encounter for gynecological examination (general) (routine) without abnormal findings; K59.01 Slow transit constipation; K64.9 Unspecified hemorrhoids; B37.31 Acute candidiasis of vulva and vagina | CPT/HCPCS: 88175 ==

== ENCOUNTER → 2024-11-19 11:17 | Outpatient (BNVA) | payer MEDICAID, SELFPAY | PROVIDERS: PCP Nurse Practitioner Family; Visit Provider Nurse Practitioner Family | DX: F33.1 Major depressive disorder, recurrent, moderate (principal); Z79.899 Other long term (current) drug therapy | CPT/HCPCS: 80053; 80061; 83036; 84443; 85025 ==

== ENCOUNTER → 2024-12-21 13:48 | Outpatient (BNVA) | payer OTHER, MEDICAID, SELFPAY | PROVIDERS: PCP Nurse Practitioner Family; Visit Provider Obstetrics & Gynecology | DX: Z30.9 Encounter for contraceptive management, unspecified (principal) | CPT/HCPCS: 81025 ==

== ENCOUNTER → 2025-03-01 10:14 | Outpatient (BNVA) | payer OTHER, MEDICAID, SELFPAY | PROVIDERS: PCP Nurse Practitioner Family; Visit Provider Nurse Practitioner Family | DX: M25.50 Pain in unspecified joint (principal) | CPT/HCPCS: 80053; 82306; 82607; 82728; 83735; 84443; 84550; 85025; 85651; 86140; 86160; 86162; 86200; 86235; 86255; 86376; 86431 ==

== ENCOUNTER → 2025-09-02 12:28 | Outpatient (BNVA) | payer OTHER, SELFPAY | PROVIDERS: PCP Nurse Practitioner Family; Visit Provider Nurse Practitioner Psychiatric/Mental Health | DX: F33.1 Major depressive disorder, recurrent, moderate (principal); Z79.899 Other long term (current) drug therapy | CPT/HCPCS: 80061; 83036 ==